=== PATIENT | female | born 1985 | race Caucasian/White ===

== ENCOUNTER → 2016-05-28 | Outpatient (CLI) | payer OTHER ==
[2016-05-28 09:30] LABS: FREE T4 (FREE THYROXINE) 1.37 ng/dL (0.93-1.71)
== END ==
LOC: LAB 07:40
PROVIDERS: ATTEND Otolaryngology
DX: E03.9 Hypothyroidism, unspecified (principal)
CPT/HCPCS: 36415; 84439; 84443; 84481

== ENCOUNTER 2016-06-04 15:28 | Emergency (ER) | payer OTHER ==
[2016-06-04] MEDS ORDERED: KETOROLAC 30 MG/1 ML VIAL IVP ONE (15:48)
[2016-06-04] MEDS ORDERED: Metoclopramide Inj 10 MG/2 ML VIAL IVP ONE (15:48)
[2016-06-04] MEDS ORDERED: Sodium Chloride 0.9% 1,000 ML PRIMARY IV ONE (15:48)
[2016-06-04] MEDS ORDERED: diphenhydrAMINE 50 MG/1 ML VIAL IVP ONE (15:48)
[2016-06-04] MEDS ORDERED: NORMAL SALINE 10 ML SYRINGE FLUSH IVP PRN (15:48)
[2016-06-04 16:15] LABS: BASOPHILS # (AUTO) 0.05 10*3/UL; BASOPHILS % (AUTO) 0.8 % (0-1); EOSINOPHILS % (AUTO) 4.6 % (0-8); HEMATOCRIT 43.1 % (37.0-47.0); HEMOGLOBIN 14.4 g/dL (12.0-16.0); IMM GRAN % (AUTO) 0 % (0-5); IMM GRAN# (AUTO) 0 10*3/UL; LYMPHOCYTES # (AUTO) 1.67 10*3/uL; LYMPHOCYTES % (AUTO) 26.5 % (10-50); MEAN CORPUSCULAR HEMOGLOBIN 28.5 PG (27-31); MEAN CORPUSCULAR HGB CONC 33.4 g/dL (33-37); MEAN PLATELET VOLUME 7.6 FL (7.4-12.2); MONOCYTES # (AUTO) 0.53 10*3/UL (0.3-0.8); MONOCYTES % (AUTO) 8.4 % (5-15); NEUTROPHILS # (AUTO) 3.76 10*3/UL; NEUTROPHILS % (AUTO) 59.7 % (50-80); RDW COEFFICIENT OF VARIATION 13.3 % (11.5-14.5); RED BLOOD COUNT 5.06 10^6/uL (4.20-5.40)
[2016-06-04 16:23] LABS: PLATELET MORPHOLOGY COMMENT NORMAL MORPHOLOGY (NORM)
[2016-06-04 16:25] LABS: ASPARTATE AMINO TRANSFERASE 37 IU/L (8-39); BILIRUBIN,TOTAL 0.5 mg/dL (0.3-1.2); BLOOD UREA NITROGEN 16 mg/dL (7-22); CALCIUM 9.4 mg/dL (8.7-10.7); CHLORIDE 106 meq/L (98-112); CREATININE 0.8 mg/dL (0.50-1.20); EST GLOMERULAR FILTRATION > 60 (>60 ml/min/1.73m(2)); GLUCOSE 86 mg/dL (78-110); POTASSIUM 4.3 meq/L (3.8-5.2); SODIUM 144 meq/L (135-145); TOTAL PROTEIN 8.4 g/dL (6.1-8.0)
[2016-06-04 16:36] VITALS: RESP 20; TEMP 97.6
[2016-06-04 17:22] LABS: URINE SPECIFIC GRAVITY - MAN 1.013
[2016-06-04 17:26] LABS: CANNABINOID SCREEN,URINE NEGATIVE (NEG); COCAINE SCREEN NEGATIVE (NEG); METHAMPHETAMINES SCREEN,URINE NEGATIVE (NEG); URINE SAMPLE TYPE VOIDED SPECIMEN; URINE SPECIFIC GRAVITY - MAN 1.013
--- NOTE | 2016-06-04 18:36 | PDOC ---
Headache HPI - General Chief Complaint: General Medical Stated Complaint: headache; rash Date Seen by Provider: 06/04/16 Time Seen by Provider: 15:35 Source: POSITIVE: Patient Exam Limitations: POSITIVE: No limitations Nurse's Notes Reviewed & Considered: Yes - History of Present Illness Initial Comments: The patient is a 30-year-old female. She states she's had a migraine headache since around noon. Her headache is left-sided, which is typical for her. She states she has a long-standing history of migraine headaches and has had CT scans of the head and MRI in the past. Present episode is identical to previous episodes. Patient states that she is also had some anxiety and insomnia. She furthermore complains of a "rash"to the dorsums of both hands and forearms on the lateral aspect of her upper arms. She states the rash is pruritic. The lesions of the rash are discrete and she states that she has been treated for suspected scabies and staph dermatitis in the past. She states she has an appointment for further evaluation by a transmission repairer in a couple of days. She's had some nausea but no vomiting. She does have photophobia. She has taken Imitrex for her headache but states this has not been helpful. Body Location Affected: REPORTS: Head (Headache), Upper Extremity (L) (Rash), Upper Extremity (R) (Rash) Timing: REPORTS: Gradual, Getting Worse Duration: Other (Rash present for a month Headache present for about 4 hours;) Severity: Moderate Quality: REPORTS: "Pain" (Headache), Throbbing Context: DENIES: CO Exposure, Tick Bite, Insect Bite, Recent Head Injury, Other Associated Symptoms: REPORTS: Sensitivity to Light. DENIES: Fever, Chills, Sweating, Problems with Vision, Visual Disturb Preceding, [place] Preceding, Typical of Prior Aura(s), Nausea, Vomiting, Neck Pain, Stiffness, Speech Problems, Weakness, Trouble Walking, Tingling, Numbness, Dizziness, Lightheadedness, Other Exacerbated by: REPORTS: Light Any Prior Injuries Related to Current Complaint?: No - Patient Home Medications Home Medications: Home Medications Multivitamin [Daily Leonard] 1 tab PO DAILY tab 03/28/15 Clonazepam 1 tab PO TID PRN #90 tab 04/11/15 DULoxetine HCl [Cymbalta] 30 mg PO DAILY 04/18/16 Levothyroxine Sodium [Synthroid] 150 mcg PO DAILY #30 tab 04/18/16 Promethazine HCl [Phenergan] 25 mg PO Q6H PRN 04/18/16 Tizanidine HCl [Zanaflex] 4 mg PO TID PRN 04/18/16 Trazodone HCl 50 mg PO BEDTIME 04/18/16 [id number] Estr/Ethin Estra [Seasonique 0.15-0.03-0.01 Tab] 1 tab PO DAILY tab 05/13/16 Permethrin [Elimite] 60 gm TOPICAL ONCE #1 tube 05/22/16 Doxepin HCl 10 mg PO PRN PRN 06/04/16 Sumatriptan Succinate [Imitrex] 100 mg PO PRN PRN 06/04/16 Triamcinolone Ointment 0.1% [Kenalog Ointment 0.1%] 60 applic TOPICAL Q8H #1 tube 06/04/16 - Patient Allergies Allergies/Adverse Reactions: Allergies Allergy/AdvReac Type Severity Reaction Status Date / Time latex Allergy Intermediate RASH Verified 06/04/16 15:45 amoxicillin trihydrate AdvReac Intermediate NAUSEA Verified 06/04/16 15:45 [From Augmentin] potassium clavulanate AdvReac Intermediate NAUSEA Verified 06/04/16 15:45 [From Augmentin] belladonna alkaloids AdvReac NOT Verified 06/04/16 15:45 APPLICABLE ondansetron HCl AdvReac NOT Verified 06/04/16 15:45 [From Zofran (as APPLICABLE hydrochloride)] Past Medical History - heen HEENT History: Denies History Cardiovascular History: Denies History Respiratory History: Denies History Gastrointestinal History: GERD Genitourinary History: Denies History Endocrine History: Hyperthyroidism Musculoskeletal History: Denies History Neurological History: Denies History Blood Disorders: Denies History Psychiatric History: Depression, Anxiety Disorders History of Sexually Transmitted Diseases: No Female Reproductive History: Denies History Obstetrical History: Denies History Cancer History: Denies History In Past Year Been Physically Harmed or Verbally Threatened: No History of MDRO: No History of Other Communicable Diseases: No Tobacco Use: Never Smoker Alcohol Use: Rarely Substance Use Type: Marijuana Previous Surgical History: Yes Type / Date of Surgery: UDAY 2005. thyroid lobectomy 04/12/2016 Significant Family History: No pertinent family hx Past Medical History Reviewed: Reviewed - No Changes ROS - Limitations ROS Limitations: No Limitations Constitution: REPORTS: Denies Symptoms Cardiovascular: REPORTS: Denies Cardiac Symptoms Respiratory: REPORTS: Denies Resp Symptoms Neurological: REPORTS: Headache Gastrointestinal: REPORTS: Nausea, Vomitting Endocrine: REPORTS: Denies Symptoms Musculoskeletal: REPORTS: Denies MS Symptoms Genitourinary: REPORTS: Denies Symptoms Eyes: REPORTS: Denies Symptoms ENT: REPORTS: Denies Symptoms Skin: REPORTS: Skin Lesions (Discreet papular lesions on dorsums of her hands forearms and lateral aspects of the upper arms with some excoriations; suspect neurodermatitis) Lympathic: REPORTS: Denies Lympathic Symptoms Immunologic: POSITIVE: Denies Symptoms Psychiatric: POSITIVE: Anxiety Headache Exam - General Appearance General Appearance: POSITIVE: Alert, Cooperative, No Acute Distress, No Evidence of Trauma - HEENT Head / Face: POSITIVE: Atraumatic, Normal Inspection, No Facial Swelling Eyes: POSITIVE: Inspection Normal, PERRL, EOM's Intact, Eyelids Uninjured, Conjunctivae Uninjured, No Nystagmus, No Globe Trauma, Sclera Normal, Normal Corneal Inspection, Normal Fundoscopic Exam, Ant. Chamber Nml Inspect., Posterior Segments Normal, No Papilledema Ears: POSITIVE: Ears Normal Inspection, TM Normal Inspection, Auricle Normal, External Canal Normal Nose: POSITIVE: Inspection Normal, No Apparent Trauma, Nares Normal, No CSF Leak Oropharynx: POSITIVE: External Inspection Nml, Pharynx Inspect. Nml, Airway Intact, Voice Normal, Moist Mucous Membranes, No Oral Injury, Lips Normal, Gums Normal, No Drooling, No Thrush, Normal Gag Reflex Dental: POSITIVE: No Dental Injury - Pupil Size Pupil Size: 4 mm: Bilateral (PERRLA) - Neck Neck: POSITIVE: Normal Inspection, Supple - Respiratory / CVS Respiratory / CVS: POSITIVE: Chest Non-Tender, No Respiratory Distress, Heart Sounds Normal, Regular Rate/Rhythm, Breath Sounds Normal Peripheral Pulses: Radial (R): 2+, Radial (L): 2+ - Abdomen Abdomen: Soft: (All Quadrants), Normal Bowel Sounds: (All Quadrants), Denies Tenderness: (All Quadrants), No Splenomegaly: (All Quadrants), No Hepatomegaly: (All Quadrants), No Guarding: (All Quadrants), No Rebound: (All Quadrants), No Palpable Pulse: (All Quadrants), No Palpabale Mass: (All Quadrants), No Distention: (All Quadrants), No Rigidity: (All Quadrants) - Skin Skin: POSITIVE: Other (Discreet papules, noncompliant fluent, to dorsums of her hands and forearms and lateral aspects of the upper arms with some excoriations ; suspect neurodermatitis) - Extremities Extremity: Non-Tender: (All Extremities), Normal ROM: (All Extremities), Normal Inspection: (All Extremities) - Neuro / Psych Higher Functions: POSITIVE: Alert, Oriented x3, Normal Speech, Mood Appropriate , Affect Appropriate Cranial Nerves: POSITIVE: Normal As Tested, No Evidence of Acute CVA Cerebellar: POSITIVE: Normal As Tested Sensorimotor: POSITIVE: No Motor Deficits, No Sensory Deficits, Reflexes Normal Reflexes: Radial (R): 2+, Radial (L): 2+ Images - Complete Complete: 1 - Papular lesions 2 - Papular lesions 3 - Papular lesion 4 - Papular lesions Headache Progress - Results Reviewed by me Lab Results Reviewed: Yes Lab Results:: Laboratory Results 06/04/16 06/04/16 Range/Units 16:11 17:07 WBC 6.30 (4.8-10.8) 10^3/uL RBC 5.06 (4.20-5.40) 10^6/uL Hgb 14.4 (12.0-16.0) g/dL Hct 43.1 (37.0-47.0) % MCV 85.2 (81-99) FL MCH 28.5 (27-31) PG MCHC 33.4 (33-37) g/dL RDW Std Deviation 41.1 (39-50) fL RDW Coeff of [place] 13.3 (11.5-14.5) % Plt Count 458 H (140-350) 10*3/uL MPV 7.6 (7.4-12.2) FL Immature Gran % (Auto) 0 (0-5) % Neut % (Auto) 59.7 (50-80) % Lymph % (Auto) 26.5 (10-50) % [place] % (Auto) 8.4 (5-15) % Eos % (Auto) 4.6 (0-8) % Baso % (Auto) 0.8 (0-1) % Immature Gran # (Auto) 0 10*3/UL Neut # (Auto) 3.76 10*3/UL Lymph # (Auto) 1.67 10*3/uL [place] # (Auto) 0.53 (0.3-0.8) 10*3/UL Eos # (Auto) 0.29 10*3/UL Baso # (Auto) 0.05 10*3/UL WBC Morphology Comment Normal morphology (NORM) Plt Morphology Comment Normal morphology (NORM) RBC Morph Comment Normal morphology (NORM) Sodium 144 (135-145) meq/L Potassium 4.3 (3.8-5.2) meq/L Chloride 106 (98-112) meq/L Carbon Dioxide 22 L (23-33) meq/L Anion Gap 16 (5-20) BUN 16 (7-22) mg/dL Creatinine 0.8 (0.50-1.20) mg/dL Estimated GFR > 60 (>60 ml/min/1.73m(2)) BUN/Creatinine Ratio 20.00 (6-20) Glucose 86 (78-110) mg/dL Calculated Osmolality 297.0 H (267-292) mOsm/kg Calcium 9.4 (8.7-10.7) mg/dL Total Bilirubin 0.5 (0.3-1.2) mg/dL AST 37 (8-39) IU/L ALT 32 (9-52) IU/L Alkaline Phosphatase 71 (38-126) IU/L Total Protein 8.4 H (6.1-8.0) g/dL Albumin 4.8 (3.5-4.8) g/dL Globulin 3.6 (2.50-4.10) g/dL Albumin/Globulin Ratio 1.30 (1.3-2.0) mg/g Ur Collection Type Voided specimen U Specif Grav (Refrac) 1.013 Urine HCG, Qual Negative Urine Opiates Screen Negative (NEG) Ur Buprenorphine Negative (NEG) Ur Oxycodone Screen Negative (NEG) Urine Methadone Screen Negative (NEG) Ur Propoxyphene Screen Negative (NEG) Barbiturate Screen Positive H (NEG) U Tricyclic Antidepress Negative (NEG) Phencyclidine Screen Negative (NEG) Amphetamines Screen Negative (NEG) U Methamphetamines Scrn Negative (NEG) Benzodiazepines Screen Negative (NEG) Cocaine Screen Negative (NEG) U Marijuana (THC) Screen Negative (NEG) - Patient's Progress Pain Medication Addressed: POSITIVE: Yes (Patient given a liter of normal saline along with 30 mg of Toradol, 10 mg of Reglan and 50 mg of diphenhydramine with complete relief of headache. Prescribed Kenalog, 0.1% to rash 3 times daily) Vital Signs - Recent Vital Signs Vital Signs: Vital Signs (Last 8 hours) Temp Pulse Resp BP Pulse Ox 06/04/16 15:48 97.6 F 84 20 155/87 96 Discharge Clinical Impression: Dermatitis, Migraine Condition: Stable Prescriptions / Orders: Triamcinolone Ointment 0.1% [Kenalog Ointment 0.1%] 60 applic TOPICAL Q8H #1 tube Patient Instructions Given at Discharge: Migraine Headache (ED), Dermatitis (ED ) Additional Instructions: Try Kenalog to your rash 3 times daily. Rest today. Follow-up with your primary care provider with regard to your migraine headache. Also follow-up with your transmission repairer as has already been arranged. Return here anytime if condition worsens or if we can be of any further service whatsoever. Follow Up With: Callie Jamseon [Primary Care Provider] - (Medication and instructions as above. Follow-up with your primary care provider and your transmission repairer. Return here anytime if condition worsens in any way.)
== END 2016-06-04 17:38 | disposition home or self-care (01) ==
LOC: ER 15:28
DX: G43.909 Migraine, unspecified, not intractable, without status migrainosus (principal); L30.9 Dermatitis, unspecified; R21 Rash and other nonspecific skin eruption
CPT/HCPCS: 80053; 80305; 84703; 85025; 96361; 96374; 96375; 99283 ×2; J1200; J1885; J2765; J7030

== ENCOUNTER → 2016-10-09 | Outpatient (CLI) | payer OTHER ==
[2016-10-09 09:53] LABS: HEMATOCRIT 44.2 % (37.0-47.0); HEMOGLOBIN 14.8 g/dL (12.0-16.0); MEAN CORPUSCULAR HEMOGLOBIN 28.6 PG (27-31); MEAN CORPUSCULAR HGB CONC 33.5 g/dL (33-37); MEAN CORPUSCULAR VOLUME 85.3 FL (81-99); MEAN PLATELET VOLUME 7.6 FL (7.4-12.2); RED BLOOD COUNT 5.18 10^6/uL (4.20-5.40)
== END ==
LOC: LAB 09:15
PROVIDERS: ATTEND Physician Assistant
DX: E03.9 Hypothyroidism, unspecified (principal); Z72.51 High risk heterosexual behavior
CPT/HCPCS: 36415; 84443; 84703; 85027

== ENCOUNTER → 2016-10-31 | Outpatient (CLI) | payer OTHER ==
--- NOTE | 2016-10-31 18:40 | DI ---
PELVIC ULTRASOUND, 10/31/2016 1:37 PM Clinical History: Chronic pelvic pain. Previous Exam: None at this facility. Technique: Transabdominal scans are performed as requested. The uterus measures 30 x 45 x 75 mm and has a normal appearance. The central uterine stripe measures 6 mm. The ovaries are normal and demonstrate vascular flow. There are no fluid collections or masses. Reading: Normal transabdominal pelvic ultrasound.
== END ==
LOC: US 13:32
PROVIDERS: ATTEND Obstetrics & Gynecology
DX: R10.2 Pelvic and perineal pain (principal)
CPT/HCPCS: 76856